=== PATIENT | female | born 1995 | race Hispanic/Latino ===

== ENCOUNTER 2016-04-11 19:49 | Emergency (ER) | payer SELFPAY | END 2016-04-11 21:14 | disposition left against medical advice (07) | LOC: M ED 19:49 | DX: Z53.29 Procedure and treatment not carried out because of patient's decision for other reasons (principal) ==

== ENCOUNTER 2017-10-15 10:05 | Emergency (ER) | payer OTHER ==
[2017-10-15] MEDS: ONDANSETRON 4 MG ORAL DISINTEGRATING TAB (Q0162 PER 1MG) PO (10:32)
[2017-10-15] MEDS ORDERED: LORazepam 2 MG TAB PO (10:45)
[2017-10-15] MEDS ORDERED: LEVALBUTEROL 1.25 MG/0.5 ML CONCENTRATE NEB NEB (10:45)
== END 2017-10-15 10:37 | disposition home or self-care (01) ==
LOC: M ED 10:05
DX: R11.2 Nausea with vomiting, unspecified (principal); R19.7 Diarrhea, unspecified
CPT/HCPCS: Q0162